=== PATIENT | female | born 1945 ===

== ENCOUNTER 2016-11-18 12:40 | Emergency (ER) | payer MEDICARE, OTHER ==
[2016-11-18 12:40] VITALS: BMI 24.2
[2016-11-18 12:45] VITALS: BP 118/65; PULSE 67; RESP 20; TEMP 98; O2SAT 99
--- NOTE | 2016-11-18 13:18 | ED PDOC ---
HPI: Dental Pain/Injury Time Seen by Provider: 11/18/16 13:00 Chief Complaint (Nursing): Dental Pain Chief Complaint (Provider): Tongue pain History/Exam Limitations: no limitations Onset/Duration Of Symptoms: Days (3x weeks) Current Symptoms Are (Timing): Still Present Severity: Moderate Additional Complaint(s): 71 year old female with a pertinent medical history of hypertension, hypothyroidism, and diabetes presents to the ED with complaints of tongue pain and swelling that started 3x weeks ago. She reports that she has noticed new cracks developing and the pain has worsened so she is unable to eat. She denies having a sore throat, fevers, chills, and cough. PMD: Jorge Urbina MD Past Medical History Reviewed: Historical Data, Nursing Documentation, Vital Signs Vital Signs: Last Vital Signs Temp 98 F 11/18/16 12:42 Pulse 67 11/18/16 12:42 Resp 20 11/18/16 12:42 BP 118/65 11/18/16 12:42 Pulse Ox 99 11/18/16 12:42 - Medical History PMH: Anemia, Anxiety, Dementia (EARLY DEMENTIA), Diabetes, HTN, Hypercholesterolemia, Hypothyroidism (MEDS ON HOLD), Osteoporosis Denies: Chronic Kidney Disease - Surgical History Surgical History: Cholecystectomy, Coronary Stent, Endoscopy - Family History Family History: States: No Known Family Hx - Social History Alcohol: None Drugs: Denies - Home Medications Home Medications: Ambulatory Orders Medication Instructions Recorded Nitroglycerin [Deponit] 0.2 mg TD DAILY 02/11/14 Pantoprazole [Protonix Susp] 40 mg PO DAILY #0 packet 02/18/14 Aspirin [Aspirin EC] 81 mg PO DAILY 05/17/15 Clopidogrel [Plavix] 75 mg PO DAILY 05/17/15 Atenolol [Tenormin] 25 mg PO DAILY 03/13/16 Mesalamine [Apriso] 0.375 gm PO QID 03/13/16 Clotrimazole [Mycelex Bird] 10 mg MM 5XD #50 angela 11/18/16 - Allergies Allergies/Adverse Reactions: Allergies Allergy/AdvReac Type Severity Reaction Status Date / Time No Known Allergies Allergy Verified 06/19/16 07:01 Review of Systems ROS Statement: Except As Marked, All Systems Reviewed And Found Negative Constitutional: Negative for: Fever, Chills ENT: Positive for: Other (tongue pain, tongue swelling, new cracks on tongue). Negative for: Throat Pain Respiratory: Negative for: Cough Physical Exam - Reviewed Nursing Documentation Reviewed: Yes Vital Signs Reviewed: Yes - Physical Exam Appears: Positive for: Well, Non-toxic, No Acute Distress Head Exam: Positive for: ATRAUMATIC, NORMOCEPHALIC Skin: Positive for: Normal Color, Warm, Dry ENT: Positive for: Other (tongue fissures noted. mild white patches noted on posterior aspect of tongue. ) Cardiovascular/Chest: Positive for: Regular Rate, Rhythm Respiratory: Positive for: Normal Breath Sounds. Negative for: Respiratory Distress Neurologic/Psych: Positive for: Alert, Oriented (3x) - Laboratory Results Result Diagrams: 11/18/16 13:20 11/18/16 13:20 - ECG O2 Sat by Pulse Oximetry: 99 (RA) Pulse Ox Interpretation: Normal Medical Decision Making Medical Decision Makin:00 Initial impression: 71 year old female with tongue pain and swelling. Initial plan: * CMP * TSH * CBC * throat culture * rapid strep group a antigen * reevaluation Scribe Attestation: Documented by Divine Mario, acting as a scribe for Nirmala Escobedo PA-C. Provider Scribe Attestation: All medical record entries made by the Scribe were at my direction and personally dictated by me. I have reviewed the chart and agree that the record accurately reflects my personal performance of the history, physical exam, medical decision making, and the department course for this patient. I have also personally directed, reviewed, and agree with the discharge instructions and disposition. Disposition - Clinical Impression Clinical Impression: Tongue pain, Oropharyngeal candidiasis - Disposition Referrals: Khurram Lozoya MD, PhD [Staff Provider] - Disposition: Routine/Home Disposition Time: 15:41 Condition: FAIR Prescriptions: Clotrimazole [Mycelex Bird] 10 mg MM 5XD #50 angela Instructions: Dysphagia (ED) Forms: [facility] (Kyrgyz) Print Language: INDONESIAN
[2016-11-18 13:41] LABS: BASO % 0.2 % (0.0-2.0); EOS # 0.1 K/uL (0.0-0.7); EOS % 0.9 % (0.0-4.0); HEMOGLOBIN 10.8 g/dL (12.0-16.0); LYMPH # 2.6 K/uL (1.0-4.3); LYMPH % 33.3 % (20.0-40.0); MEAN CELL VOLUME 100.2 fl (81.0-99.0); MEAN CORPUSCULAR HEMOGLOBIN 33.4 pg (27.0-31.0); MEAN CORPUSCULAR HGB CONC 33.3 g/dL (33.0-37.0); MEAN PLATELET VOLUME 8.9 fl (7.2-11.7); MONO # 0.8 K/uL (0.0-0.8); MONO % 9.9 % (0.0-10.0); NEUT # 4.3 K/uL (1.8-7.0); NEUT % 55.7 % (50.0-75.0); NRBC % 0.1 % (0.0-0.0); RBC 3.23 Mil/uL (3.80-5.20); RED CELL DISTRIBUTION WIDTH 14.1 % (11.5-14.5); WHITE BLOOD COUNT 7.8 K/uL (4.8-10.8)
[2016-11-18 14:06] LABS: ALB/GLOB RATIO 1.2 (1.0-2.1); ALBUMIN 4.1 g/dL (3.5-5.0); ALT/SGPT 34 U/L (9-52); AST/SGOT 29 U/L (14-36); BLOOD UREA NITROGEN 15 mg/dl (7-17); CALCIUM 9.2 mg/dL (8.4-10.2); GFR AFRICAN-AMERICAN > 60; GFR NON-AFRICAN AMERICAN > 60
== END 2016-11-18 15:50 | disposition home or self-care (01) ==
LOC: H.ER 12:40
DX: B37.0 Candidal stomatitis (principal); E11.9 Type 2 diabetes mellitus without complications; E03.9 Hypothyroidism, unspecified; E78.00 Pure hypercholesterolemia, unspecified; F03.90 Unspecified dementia, unspecified severity, without behavioral disturbance, psychotic disturbance, mood disturbance, and anxiety; F41.9 Anxiety disorder, unspecified; I10 Essential (primary) hypertension; Z79.82 Long term (current) use of aspirin; Z95.5 Presence of coronary angioplasty implant and graft; K14.6 Glossodynia

== ENCOUNTER 2018-09-07 12:30 | Emergency (ER) | payer MEDICARE, OTHER ==
[2018-09-07 12:31] VITALS: BMI 16.5
[2018-09-07] MEDS ORDERED: Sodium Chloride 0.9% 1,000 ML IV STA (14:02)
--- NOTE | 2018-09-07 14:05 | ED PDOC ---
HPI: Headache Time Seen by Provider: 09/07/18 12:35 Chief Complaint (Nursing): Headache Chief Complaint (Provider): Headache History Per: Patient, Financial Analysis Manager (Sister is preferred systems planner) History/Exam Limitations: no limitations Onset/Duration Of Symptoms: Other (2 weeks) Additional Complaint(s): 73 years old female with history of dysphasia presents to ER for evaluation of headache and dizziness onset 2 weeks. Patient has dysphasia going on for 3 years that is worked up in [facility]. As history by sister on bedside, patient was seen by her PMD, Dr. Urbina, 2 weeks ago and was told her potassium level was low and was given oral potassium. Patient states since then, potassium gave her headaches and dizziness. PMD: Jorge Urbina Past Medical History Reviewed: Historical Data, Nursing Documentation, Vital Signs Vital Signs: Last Vital Signs Temp 98 F 09/07/18 12:54 Pulse 80 09/07/18 12:54 Resp 18 09/07/18 12:54 BP 127/61 09/07/18 12:54 Pulse Ox 99 09/07/18 12:54 - Medical History PMH: Anemia, Anxiety, Dementia (EARLY DEMENTIA), Diabetes, HTN, Hypercholesterolemia, Hypothyroidism (MEDS ON HOLD), Osteoporosis Denies: Chronic Kidney Disease - Surgical History Surgical History: Cholecystectomy, Coronary Stent, Endoscopy - Family History Family History: States: Unknown Family Hx - Social History Current smoker - smoking cessation education provided: No Alcohol: None Drugs: Denies - Home Medications Home Medications: Ambulatory Orders Medication Instructions Recorded Nitroglycerin [Deponit] 0.2 mg TD DAILY 02/11/14 Pantoprazole [Protonix Susp] 40 mg PO DAILY #0 packet 02/18/14 Aspirin [Aspirin EC] 81 mg PO DAILY 05/17/15 Clopidogrel [Plavix] 75 mg PO DAILY 05/17/15 Atenolol [Tenormin] 25 mg PO DAILY 03/13/16 Mesalamine [Apriso] 0.375 gm PO QID 03/13/16 Clotrimazole [Mycelex Bird] 10 mg MM 5XD #50 angela 11/18/16 Potassium Chloride [Klor-Con 10] 20 meq PO DAILY 09/07/18 Rosuvastatin Calcium [Crestor] 10 mg PO DAILY 09/07/18 - Allergies Allergies/Adverse Reactions: Allergies Allergy/AdvReac Type Severity Reaction Status Date / Time No Known Allergies Allergy Verified 09/07/18 12:54 Review of Systems ROS Statement: Except As Marked, All Systems Reviewed And Found Negative Neurological: Positive for: Headache, Dizziness Physical Exam - Reviewed Nursing Documentation Reviewed: Yes Vital Signs Reviewed: Yes - Physical Exam Appears: Positive for: Well, No Acute Distress Head Exam: Positive for: ATRAUMATIC, NORMOCEPHALIC Skin: Positive for: Normal Color, Warm, Dry Eye Exam: Positive for: Normal appearance, EOMI, PERRL ENT: Positive for: Normal ENT Inspection Neck: Positive for: Normal, Painless ROM, Supple Cardiovascular/Chest: Positive for: Regular Rate, Rhythm. Negative for: Murmur Respiratory: Positive for: Normal Breath Sounds. Negative for: Respiratory Distress Gastrointestinal/Abdominal: Positive for: Normal Exam, Soft. Negative for: Tenderness Back: Positive for: Normal Inspection. Negative for: L CVA Tenderness, R CVA Tenderness Extremity: Positive for: Normal ROM. Negative for: Pedal Edema, Deformity Neurological/Psych: Positive for: Awake, Alert, Symmetric/Intact Strength, Oriented (x3), Cerebellar Tests (normal), Other (Cranial nerves intact). Negative for: Motor/Sensory Deficits - Laboratory Results Result Diagrams: 09/07/18 14:00 09/07/18 14:00 - ECG O2 Sat by Pulse Oximetry: 99 (RA) Pulse Ox Interpretation: Normal Medical Decision Making Medical Decision Making: Time: 1400 Initial Impression: headache and dizziness, no other localized symptoms Initial Plan: --CT Head W/O Contrast --CMP --CBC 1424 CT Head W/O Contrast FINDINGS: HEMORRHAGE: No intracranial hemorrhage. BRAIN: No mass effect or edema. Cortical atrophy and chronic microvascular ischemic change. VENTRICLES: Unremarkable. No hydrocephalus. CALVARIUM: Unremarkable. PARANASAL SINUSES: Unremarkable as visualized. No significant inflammatory changes. MASTOID AIR CELLS: Unremarkable as visualized. No inflammatory changes. OTHER FINDINGS: None. IMPRESSION: No acute intracranial abnormalities. No significant findings to account for the clinical presentation. Scribe Attestation: Documented by Alexandria Bahena, acting as a scribe for James Grady MD. Provider Scribe Attestation: All medical record entries made by the Scribe were at my direction and personally dictated by me. I have reviewed the chart and agree that the record accurately reflects my personal performance of the history, physical exam, medical decision making, and the department course for this patient. I have also personally directed, reviewed, and agree with the discharge instructions and disposition. Time: 1735 -- On re-evaluation, patient reports an improvement of symptoms. Labs reviewed and demonstrate slight anemia in labs. pt feels better w iv fluids (BUN was slightly elevated). Patient is stable for discharge home discussed outpt follow up with patient/sister at bedside Scribe Attestation: Documented by Jaylan Panda, acting as a scribe forJames Grady MD. Provider Scribe Attestation: All medical record entries made by the Scribe were at my direction and personally dictated by me. I have reviewed the chart and agree that the record accurately reflects my personal performance of the medical decision making for this patient. I have also personally directed, reviewed, and agree with the discharge instructions and disposition. Disposition - Clinical Impression Clinical Impression: Headache, Anemia - Patient ED Disposition Is Patient to be Admitted: No Counseled Patient/Family Regarding: Studies Performed, Diagnosis, Need For Followup - Disposition Disposition: Routine/Home Disposition Time: 17:30 Condition: IMPROVED Additional Instructions: follow up with your primary doctor in 1-2 days return to the ED with any worsening or concerning symptoms continue your workup at [facility] Instructions: Headache, Adult (DC) Forms: [employer] (Sudanese), [employer] (Irish) Print Language: LIBYAN
[2018-09-07 14:20] LABS: BASO % 0.1 % (0.0-2.0); EOS % 0.4 % (0.0-4.0); LYMPH # 1.9 K/uL (1.0-4.3); LYMPH % 17.7 % (20.0-40.0); MEAN CELL VOLUME 101.9 fl (81.0-99.0); MEAN CORPUSCULAR HEMOGLOBIN 33.5 pg (27.0-31.0); MEAN CORPUSCULAR HGB CONC 32.9 g/dL (33.0-37.0); MONO % 8.9 % (0.0-10.0); NEUT % 72.9 % (50.0-75.0); NRBC % 0.1 % (0.0-0.0); RBC 3.28 Mil/uL (3.80-5.20); RED CELL DISTRIBUTION WIDTH 14.4 % (11.5-14.5)
[2018-09-07 14:22] LABS: ALB/GLOB RATIO 1.1 (1.0-2.1); ALBUMIN 4.3 g/dL (3.5-5.0); ALT/SGPT 14 U/L (9-52); AST/SGOT 27 U/L (14-36); BLOOD UREA NITROGEN 18 mg/dl (7-17); CALCIUM 9.2 mg/dL (8.4-10.2); GFR NON-AFRICAN AMERICAN > 60
--- NOTE | 2018-09-07 14:28 | CT ---
Date of service: 09/07/2018 PROCEDURE: CT HEAD WITHOUT CONTRAST. HISTORY: headache COMPARISON: None. TECHNIQUE: Axial computed tomography images were obtained through the head/brain without intravenous contrast. Supplemental Coronal and Sagittal projections created and reviewed. Radiation dose: Total exam DLP = 666.32 mGy-cm. This CT exam was performed using one or more of the following dose reduction techniques: Automated exposure control, adjustment of the mA and/or kV according to patient size, and/or use of iterative reconstruction technique. FINDINGS: HEMORRHAGE: No intracranial hemorrhage. BRAIN: No mass effect or edema. Cortical atrophy and chronic microvascular ischemic change. VENTRICLES: Unremarkable. No hydrocephalus. CALVARIUM: Unremarkable. PARANASAL SINUSES: Unremarkable as visualized. No significant inflammatory changes. MASTOID AIR CELLS: Unremarkable as visualized. No inflammatory changes. OTHER FINDINGS: None. IMPRESSION: No acute intracranial abnormalities. No significant findings to account for the clinical presentation.
[2018-09-07 18:47] VITALS: BP 120/78; PULSE 78; RESP 19; TEMP 97.6
[2018-09-08 07:34] VITALS: O2SAT 99
== END 2018-09-07 18:48 | disposition home or self-care (01) ==
LOC: H.ER 12:30
DX: R51 Headache (principal); D64.9 Anemia, unspecified; E11.9 Type 2 diabetes mellitus without complications; F03.90 Unspecified dementia, unspecified severity, without behavioral disturbance, psychotic disturbance, mood disturbance, and anxiety; I10 Essential (primary) hypertension; Z79.899 Other long term (current) drug therapy; Z95.5 Presence of coronary angioplasty implant and graft; Z79.82 Long term (current) use of aspirin; M81.0 Age-related osteoporosis without current pathological fracture
CPT/HCPCS: 70450; 80053; 85025; 99285; J7030